=== PATIENT | female | born 1995 | race Hispanic/Latino ===

== ENCOUNTER 2018-09-02 12:05 | Emergency (ER) | payer SELFPAY ==
[2018-09-02 13:05] LABS: #Basophils 0.1 thou/uL (0.0-0.2); #Eosinphils 0.1 thou/uL (0.0-0.7); #Lymphocytes 1.8 thou/uL (1.20-3.40); #Monocytes 0.5 thou/uL (0.11-0.59); #Neutrophils 6.1 thou/uL (1.40-6.50); %Basophils 0.6 % (0.0-1.0); %Eosinophils 0.7 % (0.0-10.0); %Lymphocytes 21.1 % (21.0-51.0); %Neutrophils 71.6 % (42.0-75.0); Hemoglobin 13.3 g/dL (12.0-16.0); Mean Corpuscular HGB CONC 33.1 g/dL (32.0-36.0); Mean Corpuscular Hemoglobin 29.4 pg (27.0-31.0); Mean Corpuscular Volume 88.7 fL (78.0-98.0); Mean Platelet Volume 8.3 fL (7.4-10.4); Platelet Count 302 thou/uL (130-400); RBC Distribution Width 11.3 % (11.5-14.5); Red Blood Cell (RBC) Count 4.55 mill/uL (4.20-5.40); White Blood Cell (WBC) Count 8.5 thou/uL (4.8-10.8)
--- NOTE | 2018-09-02 14:47 | ULT ---
ULTRASOUND PELVIS DOPPLER DUPLEX DATE: 09-02-18 History: 23-year-old female with 1st trimester vaginal bleeding. Technique: Transabdominal transducer was used to evaluate intrapelvic contents with grayscale, color flow, and s pectral analysis. Endovaginal transducer was not used. FINDINGS: There is an intrauterine gestational sac which contains an embryonic pole measuring 1.1 cm crown-rump length, corresponding to 7 w 2 d gestational age. heart rate is 160 bpm. There is an approximately 2.5 x 1.5 x 2.5 cm heterogeneously hypoechoic structure in the myometrium t o the left of the gestational sac, which could represent a subchronic hematoma. Bilateral ovaries are normal in size and have blood flow demonstrated by doppler. No corpus luteal cy st is visualized. No free fluid in the cul-de-sac. IMPRESSION: 1. Live 1st trimester intrauterine gestation estimated to be 7 weeks 2 days gestational age. 2. Hypoechoic lesion in the uterus adjacent to the gestational sac which may represent subchronic hem atoma. 3. Follow up is recommended. POS: [facility]
[2018-09-02 14:51] LABS: Bilirubin Negative (Negative); Blood, Urine Negative (Negative); Clarity CLOUDY (Clear); Glucose, Urine (Dipstick) Negative (Negative); Leukocyte Trace (Negative); Nitrite Negative (Negative); Protein, Urine (Dipstick) Negative (Neg-Trace); Specific Gravity, Urine 1.009 (1.002-1.036); pH, Urine 7.5 (5.0-9.0)
[2018-09-02 14:58] LABS: Bacteria/HPF None Seen HPF (None Seen); Hyaline Casts/LPF 0-3 HYALINE CAST LPF (0-3 Hyaline); Pathc Cast-AUWi Flag 0.14 (0-2.49); Squamous Epithelial 0-3 HPF (0-3); WBC/HPF 0-3 HPF (0-3)
== END 2018-09-02 14:51 | disposition home or self-care (01) ==
LOC: ERS 12:05
DX: O99.89 Other specified diseases and conditions complicating pregnancy, childbirth and the puerperium (principal); R10.30 Lower abdominal pain, unspecified; Z3A.01 Less than 8 weeks gestation of pregnancy
CPT/HCPCS: 36415; 76856; 81003; 81015; 84702; 85025; 86900; 86901